=== PATIENT | female | born 1970 | race Caucasian/White ===

== ENCOUNTER 2016-10-23 22:19 | Emergency (ER) | payer SELFPAY ==
[~2016-10-23] VITALS: Ht 157.5 cm; Wt 90.0 kg
[2016-10-23 22:20] VITALS: TEMP 36.6; Ht 157.5 cm; Wt 90.0 kg
[2016-10-23] MEDS ORDERED: [UNRECOGNIZED DRUG - OTHER] PO (22:36)
[2016-10-23] MEDS ORDERED: NAPR1TAB9 PO (22:36)
[2016-10-23] MEDS ORDERED: SYMIN160 INH (22:36)
[2016-10-23] MEDS ORDERED: SIMV20TA2 PO (22:36)
[2016-10-23] MEDS ORDERED: SODIUM CHLORIDE 0.9% 1000ML 500 ML IV STA (22:51)
--- NOTE | 2016-10-23 23:06 | EMERGENCY ROOM VISIT NOTE ---
History Report prepared by Duran: Conner Camp Under the Supervision of: Dr. Petr Ibrahim M.D. First contact with patient: 22:46 Chief Complaint: FLANK PAIN Stated Complaint: RT SIDE ABD PAIN,POSSIBLE WC History of Present Illness The patient is a 46 year old female who presents to the Emergency Room with complaints of constant right upper quadrant abdominal pain beginning two days ago. The patient states that she felt a hard lump in her right upper quadrant/ chest. 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 The patient notes that she is able to eat without pain. She states that she recently took a trip to [place], but she stopped and stretched multiple times along the way. The patient reports that her pain worsens when she sits up or takes a deep breath. She denies coughing, shortness of breath, vomiting, urinary symptoms, fevers, diarrhea, blood clots to the leg or lungs, family history of blood clots, and a history of abdominal surgeries. The patient states she has a history of asthma. Source of History: patient Onset: two days ago Position: abdomen (RUQ) Timing: constant Modifying Factors (Worsening): breathing, other (sits upright) Associated Symptoms: No cough, No SOB, No vomiting, No diarrhea, No urinary symptoms Review of Systems See HPI for pertinent positives & negatives. A total of 10 systems reviewed and were otherwise negative. Past Medical & Surgical Medical Problems: (1) No Known Active Medical Problems Family History Patient reports no known family medical history. Social History Smoking Status: Never Smoker Marital Status: Housing Status: lives with significant other Occupation Status: employed Current/Historical Medications Scheduled Budesonide/Formoterol Fumarate (Symbicort 160/4.5 Inhaler ), 2 PUFFS INH BID Naproxen (Aleve), 440 MG PO prn ud Simvastatin (Zocor), 20 MG PO QPM [Peterson Pro], 1 TAB PO DAILY Allergies Coded Allergies: No Known Allergies (Unverified , 10/23/16) Physical Exam Vital Signs Date Time Temp Pulse Resp B/P (MAP) Pulse Ox O2 Delivery O2 Flow Rate FiO2 10/24/16 00:08 69 20 128/72 96 10/23/16 23:16 97 Room Air 10/23/16 23:11 71 10/23/16 22:20 36.6 72 18 138/89 98 Room Air Physical Exam GENERAL: Patient is in no acute distress. HEENT: No acute trauma, normocephalic atraumatic, mucous membranes moist, no nasal congestion, no scleral icterus. NECK: No stridor, no adenopathy, no meningismus, trachea is midline. LUNGS: Clear to auscultation bilaterally, no wheeze, no rhonchi, breath sounds equal. HEART: Without murmurs gallops or rubs, regular rate and rhythm. CHEST: Tender to the right inferior lateral ribs, no contusion ABDOMEN: Soft, nontender, bowel sounds positive, no hernias, no peritonitis. EXTREMITIES: No cyanosis or edema, full range of motion of all the joints without pain or difficulty, no signs for acute trauma. NEUROLOGIC: Oriented x 3, no acute motor or sensory deficits, no focal weakness. SKIN: No rash, no jaundice, no diaphoresis. Medical Decision & Procedures ER Provider Diagnostic Interpretation: X-ray results as stated below per interpretation by me and the radiologist: SINGLE VIEW CHEST CLINICAL HISTORY: Atypical chest pain. FINDINGS: An AP, portable, upright chest radiograph is obtained. No prior studies are available for comparison at the time of dictation. The examination is degraded by portable technique and patient rotation. The cardiomediastinal silhouette is unremarkable. The lungs and pleural spaces are clear. No pneumothorax is seen. The bony thorax is grossly intact. IMPRESSION: No active disease in the chest. Electronically signed by: Petr Fortune M.D. 10/23/2016 11:42 PM Dictated Date/Time: 10/23/2016 11:41 PM Laboratory Results 10/23/16 22:40 10/23/16 22:40 Test 10/23/16 22:40 Red Blood Count 4.43 M/uL (4.2-5.4) Mean Corpuscular Volume 80.6 fL (80-100) Mean Corpuscular Hemoglobin 26.4 pg (25-34) Mean Corpuscular Hemoglobin Concent 32.8 g/dl (32-36) RDW Standard Deviation 45.9 fL (36.4-46.3) RDW Coefficient of Variation 15.5 % (11.5-14.5) Mean Platelet Volume 9.5 fL (7.4-10.4) Anion Gap 7.0 mmol/L (3-11) Est Creatinine Clear Calc Drug Dose 95.4 ml/min Estimated GFR () 108.3 Estimated GFR (Non- 93.4 BUN/Creatinine Ratio 20.9 (10-20) Calcium Level 9.1 mg/dl (8.5-10.1) Total Bilirubin 0.1 mg/dl (0.2-1) Aspartate Amino Transf (AST/SGOT) 20 U/L (15-37) Alanine Aminotransferase (ALT/SGPT) 21 U/L (12-78) Alkaline Phosphatase 73 U/L (45-117) Troponin I < 0.015 ng/ml (0-0.045) Total Protein 7.4 gm/dl (6.4-8.2) Albumin 3.6 gm/dl (3.4-5.0) Globulin 3.8 gm/dl (2.5-4.0) Albumin/Globulin Ratio 0.9 (0.9-2) Chemistry Specimen Hemolysis D-dimer was 167 Laboratory results reviewed by me. Urine dip: trace leukocytes, no blood, no evidence of infection. Medications Administered Medications (Trade) Dose Ordered Sig/Alexi Route Start Time Stop Time Status Last Admin Dose Admin Sodium Chloride 500 ml @ 999 mls/hr Q31M STAT IV 10/23/16 22:51 10/23/16 23:21 DC 10/23/16 22:51 999 MLS/HR ECG Indication: chest pain Rate (beats per minute): 64 Rhythm: normal sinus Findings: no acute ischemic change, no ectopy ED Course 2246: The patient was evaluated in room B10. A complete history and physical exam was performed. 2251: Ordered Sodium Chloride 500 ml @ 999 mls/hr IV 2352: Reevaluated the patient. Discussed results and discharge instructions: she verbalized understanding and agreement. The patient is ready for discharge. Medical Decision The patient is a 46 year old female who presents to the ED with complaints of right upper quadrant/chest pain. Differential diagnoses considered include PE, pneumothorax, pneumonia, musculoskeletal pain, biliary colic, UTI, renal colic, aortic dissection. There is a mild leukocytosis which could be consistent with infection or just the pain. No concerning anemia. No significant electrolyte abnormality, kidney failure or hepatitis. Chest x-ray shows no mediastinal widening, pneumonia or pneumothorax. EKG shows a normal sinus rhythm, no acute ischemia. Urine dip shows trace leukocytes, no hematuria, no convincing evidence for infection. D-dimer testing was negative. With a negative d-dimer and my low suspicion for PE, I will stop the workup for this diagnosis. The patient received IV saline, she is resting comfortably. She was reassured by her testing. In short, I suspect the pain is musculoskeletal. She is sore across the right lower ribs with palpation. Her pain does worsen with certain movements. If worsening, she can return. Impression Primary Impression: Right-sided chest pain Scribe Attestation The scribe's documentation has been prepared under my direction and personally reviewed by me in its entirety. I confirm that the note above accurately reflects all work, treatment, procedures, and medical decision making performed by me. Departure Information Dispostion Home / Self-Care Referrals No Doctor, Assigned (PCP) Forms HOME CARE DOCUMENTATION FORM, IMPORTANT VISIT INFORMATION Patient Instructions My [facility] Additional Instructions heat to the chest wall will help no lifting over 15 pounds for 5 days try to rest motrin or advil 600 mg 3x per day for 5 days lab testing and imaging was all ok today return for fever or if worsening
[2016-10-23 23:12] LABS: HEMATOCRIT 35.7 % (37-47); MEAN CELL VOLUME 80.6 fL (80-100); MEAN CORPUSCULAR HEMOGLOBIN 26.4 pg (25-34); MEAN CORPUSCULAR HGB CONC 32.8 g/dl (32-36); MEAN PLATELET VOLUME 9.5 fL (7.4-10.4); PLATELET COUNT 381 K/uL (130-400); RED BLOOD COUNT 4.43 M/uL (4.2-5.4); WHITE BLOOD COUNT 12.32 K/uL (4.8-10.8)
[2016-10-23 23:16] VITALS: O2SAT 97
--- NOTE | 2016-10-23 23:43 | DIAGNOSTIC IMAGING REPORT ---
SINGLE VIEW CHEST CLINICAL HISTORY: Atypical chest pain. FINDINGS: An AP, portable, upright chest radiograph is obtained. No prior studies are available for comparison at the time of dictation. The examination is degraded by portable technique and patient rotation. The cardiomediastinal silhouette is unremarkable. The lungs and pleural spaces are clear. No pneumothorax is seen. The bony thorax is grossly intact. IMPRESSION: No active disease in the chest. Electronically signed by: Petr Fortune M.D. 10/23/2016 11:42 PM Dictated Date/Time: 10/23/2016 11:41 PM
[2016-10-23 23:48] LABS: ALB/GLOB RATIO 0.9 (0.9-2); ALKALINE PHOSPHATASE 73 U/L (45-117); ALT/SGPT 21 U/L (12-78); AST/SGOT 20 U/L (15-37); BLOOD UREA NITROGEN 16 mg/dl (7-18); BUN/CREATININE RATIO 20.9 (10-20); CALCIUM 9.1 mg/dl (8.5-10.1); CARBON DIOXIDE 25 mmol/L (21-32); CHLORIDE 106 mmol/L (98-107); CREATININE 0.76 mg/dl (0.60-1.20); GLUCOSE 79 mg/dl (70-99); POTASSIUM 3.8 mmol/L (3.5-5.1); SODIUM 138 mmol/L (136-145)
[2016-10-24 00:08] VITALS: BP 128/72; PULSE 69; O2SAT 96
== END 2016-10-24 00:09 | disposition home or self-care (01) ==
LOC: C.EDB 22:21
DX: R07.9 Chest pain, unspecified (principal)